=== PATIENT | male | born 1995 | race Two or more races ===

== ENCOUNTER 2017-10-28 01:34 | Emergency (ER) | payer OTHER ==
[2017-10-28] MEDS ORDERED: ONDANSETRON HCL INJ/PF 4 MG/2 ML SDV IV ONE (01:40)
[2017-10-28] MEDS ORDERED: KETAMINE HCL INJ 500 MG/10 ML VIAL IV ONE (01:40)
[2017-10-28] MEDS ORDERED: KETAMINE HCL INJ 500 MG/10 ML VIAL ONE (01:41)
--- NOTE | 2017-10-28 02:17 | RADIOLOGY REPORT (SQ) ---
EXAM DESCRIPTION: ANKLE LEFT COMPLETE CLINICAL HISTORY: 22 years, Male, ankle injury COMPARISON: None. NUMBER OF VIEWS: 3 LIMITATIONS: None. FINDINGS: Severe subluxation of the left talotibial joint up to 90% posterolaterally. Mild separation of the distal tibial-fibular syndesmosis. IMPRESSION: Left talotibial subluxation.
--- NOTE | 2017-10-28 02:46 | RADIOLOGY REPORT (SQ) ---
EXAM DESCRIPTION: ANKLE LEFT AP/LATERAL CLINICAL HISTORY: 22 years, Male, POST REDUCTION COMPARISON: Same day. NUMBER OF VIEWS: 2 LIMITATIONS: None. FINDINGS: Interval reduction near-anatomic alignment of the left talotibial joint. 0.7 cm curvilinear lucency of the anterior left tibial plafond may indicate an osteochondral defect or developmental artifact. Splint. IMPRESSION: Interval reduction. 0.7 cm possible OCD of the left tibial plafond.
--- NOTE | 2017-10-28 03:06 | ER Document Report ---
ED General - General Chief Complaint: Ankle Injury Stated Complaint: ANKLE INJURY Time Seen by Provider: 10/28/17 01:40 Notes: Patient is a 22-year-old male without past medical history who presents with a left ankle injury. The patient reports he was playing football with friends, jumped high and landed irregularly on his left ankle. He states that he immediately noticed a deformity of the left ankle with associated severe, constant throbbing pain. Any attempt at moving ankle worsen the pain. Nothing improves the pain. He denies any history of similar injuries in the past. He denies any additional injuries today. He came directly to the emergency department after noticing this injury. TRAVEL OUTSIDE OF THE [place] IN LAST 30 DAYS: No Past Medical History - General Information source: Patient - Social History Smoking Status: Never Smoker Frequency of alcohol use: None Drug Abuse: None Lives with: Friend Family History: Reviewed & Not Pertinent Patient has suicidal ideation: No Patient has homicidal ideation: No Renal/ Medical History: Denies: Hx Peritoneal Dialysis Review of Systems - Review of Systems Notes: Constitutional: Negative for fever. Eyes: Negative for visual changes. ENT: Negative for facial injury Cardiovascular: Negative for chest injury. Respiratory: Negative for shortness of breath. Gastrointestinal: Negative for abdominal injury. Genitourinary: Negative for genital injury Musculoskeletal: Positive for left ankle injury Skin: Negative for laceration/abrasions. Neurological: Negative for head injury. Physical Exam - Vital signs Vitals: Resp Pulse Ox 30 H 96 10/28/17 01:43 10/28/17 01:43 Interpretation: Tachycardic Notes: PHYSICAL EXAMINATION: GENERAL: Appears uncomfortable and a significant amount of pain HEAD: Atraumatic, normocephalic. EYES: Pupils equal round and reactive to light, extraocular movements intact, sclera anicteric, conjunctiva are normal. ENT: nares patent, oropharynx clear without exudates. Moist mucous membranes. NECK: Normal range of motion, supple without lymphadenopathy LUNGS: Breath sounds clear to auscultation bilaterally and equal. No wheezes rales or rhonchi. HEART: Regular rate and rhythm without murmurs. Slightly diminished DP pulse on the left, 2+ DP pulse on the right. ABDOMEN: Soft, nontender, normoactive bowel sounds. No guarding, no rebound. No masses appreciated. EXTREMITIES: Obvious deformity of the left ankle that appears to be most consistent with a talotibial dislocation NEUROLOGICAL: No focal neurological deficits. Moves all extremities spontaneously and on command. PSYCH: Normal mood, normal affect. SKIN: Warm, Dry, normal turgor, no rashes or lesions noted. Course - Re-evaluation Re-evalutation: 10/28/17 03:04 Patient presented with an acute dislocation of his left ankle after landing on her regularly while playing football. Patient had diminished pulses at time of arrival. He was immediately brought back to bed. Rapid consent was completed for procedural sedation. Pre-sedation x-rays did demonstrate a subluxation consistent with clinical examination. Patient was sedated using ketamine and the ankle was reduced without any difficulty. A long-leg posterior splint was placed. Postreduction films show appropriate reduction. Patient has been made nonweightbearing, crutches have been provided. Orthopedic surgical follow-up has been recommended. Postreduction he had complete normalization of his DP pulse, cap refill less than 1 second, full range of motion of all digits of the. He denies any additional injuries. At this time will discharge with return precautions and follow-up recommendations. Verbal discharge instructions given a the bedside and opportunity for questions given. Medication warnings reviewed. Patient is in agreement with this plan and has verbalized understanding of return precautions and the need for primary care follow-up in the next 24-72 hours. - Vital Signs Vital signs: Temp Pulse Resp BP Pulse Ox 100 27 H 149/100 H 100 10/28/17 02:00 10/28/17 02:01 10/28/17 02:00 10/28/17 02:01 - Diagnostic Test Radiology reviewed: Image reviewed, Reports reviewed Radiology results interpreted by me: 10/28/17 03:05 First x-ray: Left talotibial dislocation Repeat x-ray: Normalization of anatomic alignment Procedures - Conscious Sedation Conscious sedation Time started: 01:56 Time completed: 02:05 Consent obtained: Yes Indication: Left ankle reduction Prior complications: Procedural sedation Normal healthy pt.: P1. - ASA Classification Airway Evaluation: Normal anatomy Mallampati Classification: Class 1 Used during procedure: Suction available, IV access obtained, Pulse ox on pt., dispatcher motor vehicle on pt. Medications administered: Ketamine Reversal agents: None I personally performed/intraservice time: Sedation, Procedure, 30 min or less Complications: No - Immobilization Left Ankle Time completed: 02:00 Pre-Proc Neuro Vasc Exam: Normal Immobilizer type: Long leg posterior Performed by: Provider assisted Post-Proc Neuro Vasc Exam: Normal Alignment checked and good: Yes - Joint Reduction/Fracture Care Left Ankle Time completed: 02:00 Consent obtained: Yes Conscious sedation: Yes Pre-procedure NV exam: Yes Fracture: Other Manipulation comment: Downward traction, rapid medial movement of the foot Post-procedure NV exam: Yes Post-reduction x-ray: Joint reduced Reduction attempts: 1 Complications: No Discharge - Discharge Clinical Impression: Dislocation of left ankle joint, initial encounter Condition: Good Disposition: HOME, SELF-CARE Additional Instructions: You need to follow-up with orthopedic surgery within the next several days for evaluation of your ankle and possible MRI imaging to evaluate for ligamentous injuries that may have occurred during this dislocation. Please use the crutches until you are evaluated by orthopedic surgery and try to avoid bearing weight on the extremity. For your pain: Take ibuprofen 600 mg and acetaminophen 1000 mg every 6 hours together as needed for pain. Return for worsening pain, discoloration of your foot, loss of sensation to the foot, or any other symptoms that are worrisome to you. Referrals: QUENTIN GARCIA MD [ACTIVE STAFF] - Follow up as needed
[2017-10-28 03:24] VITALS: BP 138/68
== END 2017-10-28 04:09 | disposition home or self-care (01) ==
LOC: ER 01:34
DX: S93.05XA Dislocation of left ankle joint, initial encounter (principal); X50.0XXA Overexertion from strenuous movement or load, initial encounter; Y93.61 Activity, american tackle football
CPT/HCPCS: 99283; 99152; 96374; 73600; 73610; 27840; J3490; J2405